=== PATIENT | male | born 2000 | race Two or more races ===

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

== ENCOUNTER 2020-07-01 10:43 | Emergency (ER) | payer MEDICAID, OTHER ==
[~2020-07-01] VITALS: Ht 185.4 cm; Wt 73.5 kg
[2020-07-01 10:46] VITALS: BP 128/80
[2020-07-01] MEDS ORDERED: AZITHROMYCIN 500 MG TABLET ONE (11:16)
[2020-07-01] MEDS ORDERED: CEFTRIAXONE 250 MG ONE (11:16)
[2020-07-01] MEDS ORDERED: LIDOCAINE-MPF 1%, 2ML ONE (11:16)
[2020-07-01] MEDS ORDERED: AZITHROMYCIN 500 MG TABLET PO ONE (11:30)
[2020-07-01] MEDS ORDERED: CEFTRIAXONE 250 MG IM ONE (11:30)
== END 2020-07-01 11:38 | disposition home or self-care (01) ==
LOC: ED 11:30
DX: N34.2 Other urethritis (principal); J45.909 Unspecified asthma, uncomplicated
CPT/HCPCS: 87491; 87591; 96372; 99283; J0696